=== PATIENT | female | born 1935 | race Caucasian/White ===

== ENCOUNTER → 2016-10-27 | Outpatient (CLI) | payer MEDICARE, BC ==
[~2016-10-27] MED LIST: ASPI-999 PO; CYAN10006 PO; FOLI1TAB6 PO; GABA-486 PO; L.AC1CAP6 PO; LISI10TA2 PO; MULT-158 PO; NITR0.4T SL; TIOT4MIS2 IH
--- OUTSIDE RECORDS SUMMARY | 2016-10-27 15:35 | XMS REPORT ---
Author Author Boni Harrison [facility] Address [address] [place], [place] [id number] Care Team Providers Care Duplicator Punch Set Up Operator Name Role Phone Boni Harrison PCP Unavailable Allergies and Adverse Reactions Name Reaction Notes NO KNOWN DRUG ALLERGIES Plan of Treatment Planned Activity Comments Planned Date Planned Time Plan/Goal COMPLETE CBC W/AUTO DIFF WBC 10/17/2011 12:00 AM COMPREHEN METABOLIC PANEL 10/17/2011 12:00 AM LIPID PANEL 10/17/2011 12:00 AM ASSAY THYROID STIM HORMONE 10/17/2011 12:00 AM COMPLETE CBC W/AUTO DIFF WBC 02/27/2014 12:00 AM COMPREHEN METABOLIC PANEL 02/27/2014 12:00 AM LIPID PANEL 02/27/2014 12:00 AM COMPLETE CBC W/AUTO DIFF WBC 06/12/2014 12:00 AM COMPREHEN METABOLIC PANEL 06/12/2014 12:00 AM Medications Active Name Start Date Estimated Completion Date SIG Comments Centrum Silver Oral Tablet take 1 tablet by oral route once daily metoprolol succinate oral tablet extended release 24 hr 50 mg 09/19/2014 take 1 tablet (50 mg) by oral route once daily for 90 days promethazine-codeine oral syrup 6.25-10 mg/5 mL 02/25/2015 take 5 milliliters by oral route every 6 hours as needed, not to exceed 30 mL in 24 hours prednisone oral tablet 20 mg 03/09/2015 03/16/2015 take 2 tablets (40 mg) by oral route once daily for 7 days Spiriva Respimat inhalation mist 2.5 mcg/actuation 03/13/2015 inhale 2 puffs (5 mcg) by inhalation route once daily at the same time each day Name Start Date Expiration Date SIG Comments Zithromax Z-Efraín Oral Tablet 250 mg 09/01/2009 09/11/2009 take 2 tablets (500 mg) by oral route once daily for 5 days Zithromax Z-Efraín Oral Tablet 250 mg 01/25/2011 01/30/2011 take 2 tablets (500 mg ) by oral route once daily for 1 day then 1 tablet (250 mg) by oral route once daily for 4 days Promethazine VC-Codeine Oral Syrup 5-6.25-10 mg/5 mL 05/05/2011 take 5 milliliters by oral route every 6 hours as needed, not to exceed 30 mL in 24 hours amoxicillin Oral Capsule 500 mg take 1 capsule (500 mg) by oral route every 8 hours x 7 days Medrol (Efraín) Oral tablets,dose pack 4 mg 06/20/2012 take as directed Augmentin Oral tablet 875-125 mg 07/16/2012 08/05/2012 take 1 tablet by oral route every 12 hours for 10 days metoprolol succinate oral tablet extended release 24 hr 50 mg 09/13/201312/07 take 1 tablet (50 mg) by oral route once daily for 90 days Mobic oral tablet 15 mg 10/02/2013 03/31/2014 take 1 tablet (15 mg) by oral route once daily for 30 days lisinopril oral tablet 10 mg 06/12/2014 06/07/2015 take 1 tablet (10 mg) by oral route once daily for 30 days WelChol oral powder in packet 3.75 gram 06/12/2014 06/19/2014 take 1 packet ( 3.75 gram) dissolved in 120 to 240ml of water; stir and drink by oral route once daily with a meal for 7 days azithromycin oral tablet 250 mg 11/17/2014 11/22/2014 take 2 tablets (500 mg) by oral route once daily for 1 day then 1 tablet (250 mg) by oral route once daily for 4 days Levaquin oral tablet 500 mg 03/02/2015 03/09/2015 take 1 tablet (500 mg) by oral route once daily for 7 days Discontinued Name Start Date Discontinued Date SIG Comments Aleve Oral Tablet 220 mg 01/04/2011 take 1 tablet (220 mg) by oral route every 8 hours as needed Zantac Oral Tablet 150 mg 10/17/2011 take 1 tablet (150 mg) by oral route 2 times per day Kapidex Oral Cap, Delayed Rel., Multiphasic 60 mg 09/01/2009 01/03/2011 take 1 capsule (60 mg) by oral route once daily Benicar HCT Oral Tablet 40-25 mg 06/10/2010 12/29/2010 take 1 tablet by oral route once daily Horse chestnut 500 mg 06/17/2013 1 daily Ginkgo Biloba Oral Capsule 50 mg 06/17/2013 Avalide Oral Tablet 300-12.5 mg 01/25/2011 10/17/2011 take 1 tablet by oral route once daily bumetanide Oral Tablet 1 mg 05/05/2011 10/17/2011 take 1 tablet by oral route daily as needed Lortab Oral tablet 5-500 mg 06/20/2012 06/17/2013 take 1 tablet by oral route every 6 hours as needed for pain Amoxicillin Oral Capsule 500 mg 02/19/2013 06/17/2013 take 2 capsules by oral route 3 times a day for 5 days Toprol XL Oral tablet extended release 24 hr 50 mg 02/19/2013 04/09/2013 take 1 tablet by oral route daily for 90 days deleted Levaquin Oral tablet 500 mg 06/17/2013 take 1 tablet (500 mg) by oral route once daily for 7 days Percocet oral tablet 5-325 mg 08/20/2014 03/02/2015 take 1 tablet by oral route every 6 hours as needed Mobic oral tablet 7.5 mg 11/17/2014 03/02/2015 take 1-2 tablets by oral route daily Start with 1. May take 2nd one in 30-45 minutes afterwards if pain persists Allison Kirbyes oral capsule 100 mg 11/17/2014 03/02/2015 take 1 capsule (100 mg) by oral route every 4 hours as needed albuterol sulfate inhalation HFA aerosol inhaler 90 mcg/actuation 11/28/201403/02/2015 inhale 1 - 2 puffs by inhalation route every 4-6 hours as needed Symbicort inhalation HFA aerosol inhaler 80-4.5 mcg/actuation 11/28/20142014 inhale 2 puffs by inhalation route 2 times per day in the morning and evening Problem List Description Status Onset Hypertension Active Osteoarthritis Active GERD Active Hepatitis Active Keratosis, seborrheic Active 09/16/2014 Benign neoplasm of skin of lower limb Active 09/16/2014 Benign neoplasm of skin of upper limb and shoulder Active 09/16/2014 Actinic Keratosis Active 09/16/2014 Benign neoplasm of skin of back Active 09/16/2014 [place] angioma Active 09/16/2014 Vital Signs Date Time BP-Sys(mm[Hg] BP-Dottie(mm[Hg]) HR(bpm) RR(rpm) Temp WT HT HC BMI BSA BMI Percentile O2 Sat(%) 03/13/2015 10:22:00 AM 132 mmHg 70 mmHg 73 bpm 18 rpm 97.4 F 176 lbs 63 in 31.18 kg/m2 1.88 m2 99 % 03/09/2015 2:44:00 PM 130 mmHg 80 mmHg 69 bpm 18 rpm 98.4 F 172 lbs 63 in 30.4681 kg/m 1.8622 m 96 % 03/02/2015 10:40:00 AM 134 mmHg 66 mmHg 65 bpm 18 rpm 99.5 F 170.125 lbs 63 in 30.14 kg/m2 1.85 m2 93 % 11/17/2014 4:02:00 PM 123 mmHg 80 mmHg 85 bpm 16 rpm 97.6 F 190 lbs 63 in 33.6566 kg/m 1.9573 m 98 % 08/14/2014 9:03:00 AM 138 mmHg 84 mmHg 82 bpm 18 rpm 97.8 F 190.375 lbs 63 in 33.72 kg/m2 1.96 m2 96 % 06/12/2014 10:16:00 AM 166 mmHg 78 mmHg 72 bpm 18 rpm 97.4 F 191 lbs 63 in 33.8338 kg/m 1.9624 m 02/27/2014 3:51:00 PM 142 mmHg 82 mmHg 67 bpm 18 rpm 98.7 F 195 lbs 63 in 34.54 kg/m2 1.98 m2 93 % 09/06/2013 4:41:00 PM 170 mmHg 100 mmHg 75 bpm 16 rpm 193 lbs 66 in 31.1507 kg/m 2.0191 m 99 % 06/17/2013 10:06:00 AM 130 mmHg 88 mmHg 68 bpm 18 rpm 97.9 F 189 lbs 66 in 30.51 kg/m2 2.00 m2 02/19/2013 2:46:00 PM 160 mmHg 80 mmHg 64 bpm 18 rpm 97.4 F 190 lbs 66 in 30.6665 kg/m 2.0033 m 02/05/2013 11:40:00 AM 160 mmHg 80 mmHg 72 bpm 16 rpm 97.2 F 189 lbs 66 in 30.51 kg/m2 2.00 m2 07/16/2012 3:06:00 PM 136 mmHg 80 mmHg 56 bpm 18 rpm 97.8 F 177 lbs 66 in 28.5683 kg/m 1.9336 m 06/20/2012 11:07:00 AM 124 mmHg 80 mmHg 78 bpm 18 rpm 98.2 F 178 lbs 66 in 28.73 kg/m2 1.94 m2 12/16/2011 8:52:00 AM 166 mmHg 90 mmHg 72 bpm 20 rpm 97.8 F 178 lbs 66 in 28.7297 kg/m 1.939 m 10/17/2011 2:09:00 PM 154 mmHg 76 mmHg 78 bpm 18 rpm 97 F 174 lbs 66 in 28.08 kg/m2 1.92 m2 05/05/2011 9:45:00 AM 144 mmHg 84 mmHg 100 bpm 18 rpm 97.5 F 177.375 lbs 01/25/2011 1:27:00 PM 140 mmHg 80 mmHg 102 bpm 18 rpm 97.2 F 177.25 lbs 66 in 28.61 kg/m2 1.93 m2 95 % 01/03/2011 11:11:00 AM 132 mmHg 80 mmHg 76 bpm 16 rpm 97.2 F 178.562 lbs 12/29/2010 4:02:00 PM 130 mmHg 90 mmHg 84 bpm 16 rpm 97.4 F 181.25 lbs 66 in 29.25 kg/m2 1.96 m2 97 % 09/01/2009 4:12:00 PM 110 mmHg 68 mmHg 82 bpm 16 rpm 96.8 F 187.375 lbs 66 in 30.2428 kg/m 1.9894 m 98 % Social History Name Description Comments Housing Lives in a house in [place], [place] Lives with spouse [facility] REAL ESTATE Grown Children 5 children --1 Tobacco Never smoker Alcohol Did not serve in lives at home Denies illicit substance abuse Alcohol Use 2-3 vodka a night High school graduate Active but no formal exercise History of Procedures Date Ordered Description Order Status 09/29/2011 12:00 AM URINALYSIS AUTO W/SCOPE Returned 10/17/2011 12:00 AM ECG MONIT/REPRT UP TO 48 HRS Reviewed 07/16/2012 12:00 AM TD VACCINE NO PRSRV 7/> IM Reviewed 07/19/2012 12:00 AM MAMMOGRAM SCREENING Returned 09/01/2009 12:00 AM CHEST X-RAY 2VW FRONTAL&LATL Reviewed 09/01/2009 12:00 AM THER/PROPH/DIAG INJ SC/IM Reviewed 08/14/2014 12:00 AM COMPLETE CBC W/AUTO DIFF WBC Reviewed 08/14/2014 12:00 AM COMPREHEN METABOLIC PANEL Reviewed 08/14/2014 12:00 AM VITAMIN B-12 Reviewed 08/14/2014 12:00 AM ASSAY OF PREALBUMIN Reviewed 08/14/2014 12:00 AM ASSAY OF IRON Reviewed 08/14/2014 12:00 AM IRON BINDING TEST Reviewed 08/14/2014 12:00 AM ASSAY OF CK (CPK) Reviewed 01/25/2011 12:00 AM THER/PROPH/DIAG INJ SC/IM Reviewed 11/26/2014 12:00 AM COMPLETE CBC W/AUTO DIFF WBC Returned 11/26/2014 12:00 AM COMPREHEN METABOLIC PANEL Returned 11/26/2014 12:00 AM CHEST X-RAY 2VW FRONTAL&LATL Returned 11/26/2014 12:00 AM MYCOPLASMA ANTIBODY Returned 03/09/2015 12:00 AM COMPLETE CBC W/AUTO DIFF WBC Reviewed 03/09/2015 12:00 AM COMPREHEN METABOLIC PANEL Reviewed 03/09/2015 12:00 AM CHEST X-RAY 2VW FRONTAL&LATL Reviewed 03/09/2015 12:00 AM ASSAY OF NATRIURETIC PEPTIDE Reviewed Results Summary Data and Description Results 02/15/2002 12:00 AM Mammogram -Women over 40 Normal 05/22/2002 12:00 AM Cholest Cry Stone Ql IR 167.0 %LDLc SerPl-mCnc 83.0 mg/ dLHDLc SerPl-mCnc 69.0 mg/dLTrigl SerPl-mCnc 72.0 mg/dL 02/24/2003 12:00 AM Glucose SerPl-mCnc 113.0 mg/dL 05/09/2005 12:00 AM Dexa Bone Scan Done 09/01/2009 12:31 PM HIV1+2 Ab Ser Ql no risk 12/29/2010 4:05 PM Pap Smear Declined 12/29/2010 4:07 PM Colonoscopy-Women and Men over 50 ordered 12/29/2010 4:07 PM Depression Done HIV1+2 Ab Ser Ql no risk 12/29/2010 4:08 PM Aspirin reccommended Contraindication 09/29/2011 5:52 PM COLOR YELLOW APPEARANCE HAZY SPEC GRAV 1.020 pH 6.5 PROTEIN NEGATIVE GLUCOSE NEGATIVE KETONE NEGATIVE BILIRUBIN NEGATIVE BLOOD MODERATE NITRITE POSITIVE LEUK SCREEN TRACE CASTS/LPF NEGATIVE CRYSTALS NEGATIVE MUCOUS THRDS NEGATIVE BACTERIA 1+ EPITH CELLS FEW SQUAMOUS TRICHOMONAS NEGATIVE YEAST NEGATIVE 08/14/2014 9:58 AM IRON TOTAL 50.0 ug/dLTransferrin 230.0 mg/dLPREALBUMIN 17.0 mg/dLCPK 19 IU/LWBC 5.3 RBC 3.37 HGB 11.0 g/dLHCT 33.50 %MCV 99.0 fLMCH 32.60 pgMCHC 32.80 g/dLRDW CV 15.80 %MPV 9.0 fLPLT 300 %NEUT 63.80 %%LYMP 15.80 %%MONO 18.70 %%EOS 1.50 %%BASO 0.20 %#NEUT 3.35 #LYMP 0.83 #MONO 0.98 #EOS 0.08 #BASO 0.01 GLUCOSE 111.0 mg/dLSODIUM 136.0 mmol/LPOTASSIUM 4.40 mmol/LCHLORIDE 101.0 mmol/LCO2 25.0 mmol/LBUN 20.0 mg/dLCREATININE 0.90 mg/dLSGOT/AST 25.0 IU/ LSGPT/ALT 34.0 IU/LALK PHOS 87.0 IU/LTOTAL PROTEIN 7.10 g/dLALBUMIN 3.90 g/ dLTOTAL BILI 1.40 mg/dLCALCIUM 9.30 mg/dLeGFR 60 VITAMIN B12 >2000 PG/ML 08/27/2014 4:04 PM WBC 5.0 RBC 3.87 HGB 12.30 g/dLHCT 38.50 %MCV 100.0 fLMCH 31.80 pgMCHC 31.90 g/dLRDW CV 14.70 %MPV 10.10 fLPLT 302 %NEUT 48.80 %%LYMP 33.10 %%MONO 15.50 %%EOS 2.40 %%BASO 0.20 %#NEUT 2.43 #LYMP 1.65 #MONO 0.77 # EOS 0.12 #BASO 0.01 GLUCOSE 102.0 mg/dLSODIUM 141.0 mmol/LPOTASSIUM 4.50 mmol/ LCHLORIDE 104.0 mmol/LCO2 23.0 mmol/LBUN 17.0 mg/dLCREATININE 0.90 mg/dLSGOT/ AST 21.0 IU/LSGPT/ALT 18.0 IU/LALK PHOS 138.0 IU/LTOTAL PROTEIN 7.10 g/ dLALBUMIN 4.0 g/dLTOTAL BILI 0.40 mg/dLCALCIUM 9.50 mg/dLeGFR 60 11/26/2014 2:40 PM GLUCOSE 118.0 mg/dLSODIUM 139.0 mmol/LPOTASSIUM 4.60 mmol/ LCHLORIDE 98.0 mmol/LCO2 27.0 mmol/LBUN 17.0 mg/dLCREATININE 0.90 mg/dLSGOT/AST 20.0 IU/LSGPT/ALT 9.0 IU/LALK PHOS 83.0 IU/LTOTAL PROTEIN 7.10 g/dLALBUMIN 4.0 g /dLTOTAL BILI 0.60 mg/dLCALCIUM 9.80 mg/dLeGFR >60 mL/min/1.73 m2WBC 6.1 RBC 4.87 HGB 15.60 g/dLHCT 47.0 %MCV 97.0 fLMCH 32.0 pgMCHC 33.20 g/dLRDW CV 16.50 % MPV 10.40 fLPLT 211 %NEUT 46.30 %%LYMP 35.60 %%MONO 15.20 %%EOS 2.60 %%BASO 0.30 %#NEUT 2.84 #LYMP 2.18 #MONO 0.93 #EOS 0.16 #BASO 0.02 EOS 1.0 % 03/09/2015 4:10 PM WBC 6.4 RBC 4.76 HGB 15.70 g/dLHCT 45.80 %MCV 96.0 fLMCH 33.0 pgMCHC 34.30 g/dLRDW CV 15.0 %MPV 10.40 fLPLT 259 %NEUT 52.50 %%LYMP 28.0 % %MONO 18.20 %%EOS 0.80 %%BASO 0.50 %#NEUT 3.34 #LYMP 1.78 #MONO 1.16 #EOS 0.05 # BASO 0.03 BASO 1.0 %GLUCOSE 115.0 mg/dLSODIUM 138.0 mmol/LPOTASSIUM 4.40 mmol/ LCHLORIDE 101.0 mmol/LCO2 27.0 mmol/LBUN 18.0 mg/dLCREATININE 1.0 mg/dLSGOT/AST 16.0 IU/LSGPT/ALT 11.0 IU/LALK PHOS 79.0 IU/LTOTAL PROTEIN 6.90 g/dLALBUMIN 4.10 g/dLTOTAL BILI 0.70 mg/dLCALCIUM 9.90 mg/dLeGFR 54 BNP 111.0 pg/mL History Of Immunizations Name Date Admin Mfg Name Mfg Code Trade Name Lot# Route Inj Vis Given Vis Pub CVX Td 07/16/2012 sanofi pasteur [facility] DECAVAC [id number] Intramuscular Left Deltoid 07/16/2012 01/26/2010 113 History of Past Illness Name Date of Onset Comments Acute Maxillary Sinusitis Sep 01 2009 4:33PM Gastroesophageal Reflux Sep 01 2009 4:33PM Cough Sep 01 2009 4:33PM Hypertension Osteoarthritis GERD Hepatitis Lymphedema Keratosis, seborrheic 09/16/2014 Benign neoplasm of skin of lower limb 09/16/2014 Benign neoplasm of skin of upper limb and shoulder 09/16/2014 Actinic Keratosis 09/16/2014 Benign neoplasm of skin of back 09/16/2014 [place] angioma 09/16/2014 Edema Dec 29 2010 4:37PM Lymphedema Jan 03 2011 11:17AM Acute Maxillary Sinusitis Jan 25 2011 1:30PM Wheezing Jan 25 2011 1:30PM Hypertension May 05 2011 9:47AM Lymphedema May 05 2011 9:47AM Upper Respiratory Infection May 05 2011 9:47AM Dysuria Sep 29 2011 4:56PM Syncope Oct 17 2011 2:15PM Screening for Ischemic Heart Disease Oct 17 2011 2:15PM Loss of consciousness Oct 17 2011 4:13PM Syncope Dec 16 2011 8:57AM Lesion, Skin Mar 07 2012 10:22AM Osteoarthritis Jun 20 2012 11:09AM Cough Jun 20 2012 11:09AM Cellulitis/Abscess, unspecified Jul 16 2012 3:13PM Screening Mammogram Jul 19 2012 5:18PM Bite By Non-arthropod Animal Jul 16 2012 3:13PM Hypertension Feb 05 2013 11:41AM Hypertension Feb 19 2013 2:51PM Otitis Media, Acute Feb 19 2013 2:51PM Hypertension Jun 17 2013 10:14AM Preoperative Examination Jun 17 2013 10:14AM Hypertension Sep 06 2013 4:44PM Hypertension Feb 27 2014 3:57PM Hypertension Jun 12 2014 10:19AM Abdominal Pain Jun 12 2014 10:19AM Anemia Aug 14 2014 9:09AM Hypertension Aug 14 2014 9:09AM Rhabdomyolysis Aug 14 2014 9:09AM Keratosis, seborrheic Sep 16 2014 1:52PM Benign neoplasm of skin of lower limb Sep 16 2014 1:52PM Benign neoplasm of skin of upper limb and shoulder Sep 16 2014 1:52PM Actinic keratosis Sep 16 2014 1:52PM Benign neoplasm of skin of back Sep 16 2014 1:52PM Quezada angioma Sep 16 2014 1:52PM Left hip pain Nov 17 2014 4:04PM Upper Respiratory Infection Nov 17 2014 4:04PM Cough Nov 26 2014 2:22PM Bronchitis, Acute Mar 02 2015 10:42AM Hyperglycemia Mar 09 2015 2:57PM Anemia, Vitamin B12 Deficiency Mar 09 2015 2:57PM Cough Mar 09 2015 2:57PM Chronic Obstructive Pulmonary Disease Mar 13 2015 10:22AM Payers Insurance Name Company Name Plan Name Plan Number Policy Number Policy Group Number Start Date Medicare Part A Medicare Part A [id number] N/A [employer] [facility] [id number] N/A Medicare Part B Medicare Of [place] [id number] Wednesday, 2002 [employer]et[employer] Aetna [id number] N/A [facility] [id number] Tuesday, 2013 History of Encounters Visit Date Visit Type Provider 03/13/2015 Office visit Boni Harrison MD 03/09/2015 Office visit Boni Harrison MD 03/02/2015 Office visit Boni Harrison MD 11/17/2014 Office visit Josiah Daley APRN 09/16/2014 Office visit Onur Haley MD 08/28/2014 [facility] Ayan Samuels DO 08/27/2014 [facility] Marya Ervin MD 08/14/2014 Office visit Boni Harrison MD 08/06/2014 [facility] Mignon Crooks MD 06/12/2014 Office visit Boni Harrison MD 02/27/2014 Office visit Boni Harrison MD 09/06/2013 Office visit Josiah Daley APRN 07/09/2013 [facility] Marya Ervin MD 06/17/2013 Office visit Boni Harrison MD 02/19/2013 Office visit Boni Harrison MD 02/05/2013 Office visit Boni Harrison MD 07/16/2012 Office visit Boni Harrison MD 06/20/2012 Office visit Boni Harrison MD 06/14/2012 [facility] Sharmaine DO 06/13/2012 [facility] Mignon Crooks MD 06/12/2012 [facility] Mignon Crokos MD 12/16/2011 Procedures Boni Harrison MD 10/17/2011 Office visit Boni Harrison MD 07/11/2011 Office visit Yoandy Anglin MD 05/05/2011 Office visit Boni Harrison MD 01/25/2011 Office visit Dave Chowdary DO 01/03/2011 Office visit Filomena Meier MD 12/29/2010 Office visit Dave Chowdary DO 08/11/2010 [facility] Marya Ervin MD 09/01/2009 Office visit Dave Chowdary DO
--- NOTE | 2016-10-28 13:19 | ECHOCARDIOGRAPHY REPORT ---
PROCEDURE PHYSICIAN: JOSELYN ASHLEY DATE OF PROCEDURE: 10/27/2016 TWO DIMENSIONAL ECHOCARDIOGRAM REPORT PRIMARY PHYSICIAN: OTHER PHYSICIAN: REFERRING PHYSICIAN: Dr. Harrison ORDERING PHYSICIAN: INDICATION FOR THE PROCEDURE: Chest pain, hypertension. MEASUREMENTS DERIVED VALUES LV DIAMETER (LAX) NORMALS NORMALS Diastolic 4. (3.6-5.2) Eject. Fract. 60% (60%+/-6%) Systolic (2.3-3.9) Diastolic Vol. % Shortening (0.22-0.42) Systolic Vol. Aortic Root IVS THICKNESS Diastolic 1.2 (0.6-1.1) LVPW THICKNESS Diastolic 1.2 (0.6-1.1) LA DIAMETER Systolic 3.8 (2.1-3.7) FINDINGS: 1. Technical quality is good. 2. The left ventricle is normal in size with normal contractility. Systolic function appeared to be normal. Estimated ejection fraction 60%. 3. The left atrium is mildly dilated. No clot or thrombus were seen within the left atrium. 4. The right atrium and right ventricle are normal in size. No clot or thrombus were seen within the right side. 5. Mitral valve is mildly calcified with mild mitral regurgitation noted by color Doppler flow. No mitral valve prolapse. No mitral valve stenosis. 6. Aortic valve is trileaflet with normal opening and closing pattern. No significant aortic valve stenosis. Mild aortic regurgitation noted by color Doppler flow. 7. Tricuspid valve is normal in morphology with mild tricuspid regurgitation noted by color Doppler flow. Doppler across tricuspid valve estimated pulmonary artery pressure of 33+ right atrial pressure. 8. Pulmonic valve is functioning normally. 9. No pericardial effusion. CONCLUSION: 1. Normal left ventricular size and systolic function. Estimated ejection fraction 60%. Diastolic dysfunction is suggested by Doppler. 2. Mildly dilated left atrium. 3. Mild mitral and tricuspid regurgitation. 4. Mild aortic regurgitation. 5. Estimated pulmonary artery pressure of 40 mmHg. Job ID: [id number] Dictated Date: 10/28/2016 08:33:12 Recreational Specialist Date: 10/28/2016 13:15:44 / moiz
== END ==
LOC: CARD 15:28
PROVIDERS: ATTEND Internal Medicine Cardiovascular Disease
DX: R07.9 Chest pain, unspecified (principal); I10 Essential (primary) hypertension; R55 Syncope and collapse; E66.9 Obesity, unspecified; J44.9 Chronic obstructive pulmonary disease, unspecified
CPT/HCPCS: 93306

== ENCOUNTER 2016-11-09 06:48 | Day surgery (SDC) | payer MEDICARE ==
[2016-11-09] VITALS (13 sets, daily range): BP systolic 132–165; BP diastolic 60–82
[~2016-11-09] VITALS: Ht 167.6 cm; Wt 79.4 kg
[2016-11-09] MEDS ORDERED: NS IV 1000 ML 1,000 ML ONE (07:05)
[2016-11-09] MEDS ORDERED: HEParin (CATH LAB) 2,000 ML IV ONE ×2 (07:05→09:48)
[2016-11-09] MEDS ORDERED: LIDOCAINE 1% INJ 20 ML (XYLOCAINE) VIAL ONE ×2 (07:05→09:48)
[2016-11-09] MEDS ORDERED: NS IV 1000 ML 1,000 ML IV SCH (07:15)
[2016-11-09 07:53] LABS: MEAN PLATELET VOLUME 9.5 FL (7.4-10.4); RED BLOOD COUNT 4.63 10^6/uL (4.35-5.85); RED CELL DISTRIBUTION WIDTH 15.1 % (10.0-14.5); WHITE BLOOD COUNT 4.3 10^3/uL (4.3-11.0)
[2016-11-09] MEDS ORDERED: methylPREDNISolone 125 MG (Solu-MEDROL) VIAL ONE (07:54)
[2016-11-09 07:59] LABS: BILIRUBIN,URINE NEGATIVE (NEGATIVE); KETONES,URINE NEGATIVE (NEGATIVE); LEUKOCYTE ESTERASE ,URINE 1+ (NEGATIVE); NITRITE,URINE NEGATIVE (NEGATIVE); PH,URINE 6 (5-9); PROTEIN,URINE 1+ (NEGATIVE); UROBILINOGEN,URINE NORMAL (NORMAL)
[2016-11-09 08:01] LABS: INR 0.9 (0.8-1.4); PROTHROMBIN TIME PATIENT 12.2 SEC (12.2-14.7)
[2016-11-09 08:07] LABS: WBC,URINE RARE /HPF
[2016-11-09] MEDS ORDERED: MULT-158 PO (08:08)
[2016-11-09] MEDS ORDERED: LISI10TA2 PO (08:08)
[2016-11-09] MEDS ORDERED: FOLI1TAB6 PO (08:08)
[2016-11-09] MEDS ORDERED: TIOT4MIS2 IH (08:08)
[2016-11-09] MEDS ORDERED: L.AC1CAP6 PO (08:08)
[2016-11-09] MEDS ORDERED: GABA-486 PO (08:08)
[2016-11-09] MEDS ORDERED: CYAN10006 PO (08:08)
[2016-11-09] MEDS ORDERED: NITR0.4T SL (08:10)
[2016-11-09] MEDS ORDERED: ASPI-999 PO (08:10)
--- NOTE | 2016-11-09 08:11 | Diagnostic Imaging Report ---
INDICATION: Precardiac catheterization. FINDINGS: Heart size within normal limits. No vascular congestion. No evidence for edema, pneumonia, effusion or pneumothorax. There is no acute failure pattern. IMPRESSION: No acute appearing abnormality. Dictated by: Dictated on workstation # [id number]
[2016-11-09 08:12] LABS: ALBUMIN 4.2 G/DL (3.2-4.5); BILIRUBIN,TOTAL 0.7 MG/DL (0.1-1.0); CREATININE SERUM 1.09 MG/DL (0.60-1.30); POTASSIUM 4.2 MMOL/L (3.6-5.0)
[2016-11-09] MEDS ORDERED: diphenhydrAMINE 50 MG/ML INJ (BENADRYL) ONE (08:24)
[2016-11-09] MEDS ORDERED: fentaNYL INJECTION 100 MCG/2 ML AMP ONE ×2 (08:24→09:48)
[2016-11-09] MEDS ORDERED: MIDAZOLAM 5 MG/5 ML (VERSED) VIAL ONE ×2 (08:24→09:48)
--- NOTE | 2016-11-09 08:27 | Cardiac Procedure Note-CS/ASA ---
Pre-Procedure Note Pre-Op Procedure Note H&P Reviewed The H&P was reviewed, patient examined and no changes noted. Date H&P Reviewed: Nov 09, 2016 Time H&P Reviewed: : Conscious Sedation Pre-Proced Time Reviewed: ASA Class: 3 Airway Mallampati Classification: (cherokee appropriate class) I. II. III, IV Lungs Heart ASA score ASA 1: a normal healthy patient ASA 2: a patient with a mild systemic disease (mid diabetes, controlled hypertension, obesity x ASA 3: a patient with a severe systemic disease that limits activity (angina , COPD, prior Myocardial infarction) ASA 4: a patient with an incapacitating disease that is a constant threat to life (CHF, renal failure) ASA 5: a moribund patient not expected to survive 24 hrs. (ruptured aneurysm) ASA 6: a declared brain patient whose organs are being harvested. For emergent operations, add the letter E after the classification Grade 3 Sedation Plan: Analgesia, Amnesia, Plan communicated to team members, Discussed options with patient/fam, Discussed risks with patient/fam Note The patient is an appropriate candidate to undergo the planned procedure, sedation, and anesthesia. The patient immediately re-assessed prior to indication. JOSELYN ASHLEY MD Nov 09, 2016 08:27
--- NOTE | 2016-11-09 09:34 | Discharge Inst-Post CATH ---
Discharge Inst-CATH Post Cardiac Cath D/C Inst Follow Up/Plan Appointment with Dr Crockett's office in 2-4 weeks CARDIAC CATH DISCHARGE INSTRUCTIONS *Hold Metformin for 48 hours post heart cath. ACTIVITY * Go Home directly and rest. * Limit activity of the leg (or wrist if it was used) for 7 days including aerobics, swimming, jogging, bicycling, etc. * Restrict stair-climbing for 7 days if possible, if not, climb up with your non -cath leg, then bring together on the same step. * Avoid lifting, pushing, pulling or excessive movement of the affected extremity for 7 days. * Customary sexual activity may be resumed after 2 days-use caution not to use a position that strains or causes pain to the affected extremity. * No driving for 24 hours. * NO SMOKING. * Avoid straining for bowel movements for 7 days. * Gentle walking on level ground is allowed. * Returning to work will depend on the type of procedure and the results. Your doctor will discuss this with you. CALL YOUR DOCTOR FOR ANY OF THE FOLLOWING: *If bleeding from the puncture site occurs- Apply gentle pressure to site with clean cloth and call your doctor or EMS. * If a knot or lump forms under the skin, increases in size, or causes pain. * If bruising appears to be worsening or moving further down your leg instead of disappearing. * Temperature above 101 F. CARE OF YOUR GROIN INCISION; * Bruising or purple discoloration of the skin near the puncture site is common. * You may shower only, no bathtub bathing for 5 days. Be careful to avoid slipping as your leg may feel stiff. * If a closure device was used on your femoral artery, please see the attached guide regarding care of the device and your leg. * REMOVE the dressing from your groin the next day after your procedure in the shower. CARE OF YOUR WRIST INCISION; * Bruising or purple discoloration of the skin near the puncture site is common. * You may shower. * DO NOT submerge wrist. * Remove dressing in 24 hours. JOSELYN CROCKETT MD Nov 09, 2016 09:34
[2016-11-09] MEDS ORDERED: PATIENT MAY USE OWN MEDS, ALL PO SCH (09:45)
--- NOTE | 2016-11-09 11:07 | CARDIAC CATHETERIZATION ---
PROCEDURE PHYSICIAN: JOSELYN ASHLEY DATE OF PROCEDURE: 11/09/2016 REFERRING PHYSICIAN: Dr. Boni Harrison. INDICATION: Coronary artery disease. BRIEF HISTORY: Mrs. Nina is a 81-year-old lady with a history of hypertension, hyperlipidemia, has been having recurrent chest pain resembling angina. Underwent a extensive cardiac work-up in June; it did not include cardiac catheterization. Still having recurrent chest pain and decided to proceed with cardiac catheterization, possible PTCA. Patient had a foot ulcer. PEDRO was unobtainable due to significant pain. After the cardiac catheterization and evaluating her coronaries, I decided to proceed with abdominal aortogram with bilateral runoff. PROCEDURE NOTE: After explaining the procedure to the patient, all pros and cons were explained. All questions were answered. The patient signed a consent, then she was placed on the cardiac catheterization laboratory. The right groin was prepped in a sterile fashion. Local anesthesia applied to right groin. 6-Divehi sheath was placed in the right femoral artery. Combination of right and left Jose catheter were used to access the right and left coronary system. Multiple views were obtained. Pigtail catheter advanced to the left ventricular cavity. Pressure was measured. Left ventriculogram was done. Pullback LV to aorta was done. The left groin was prepped, 6-Divehi sheath was placed. Pigtail catheter advanced to the abdominal aorta. Abdominal aortogram with bilateral runoff was done with automated injection. At the end of the procedure, sheath was removed. Mynx device deployed. Hemostasis achieved. FINDINGS: HEMODYNAMICS: LV pressure 159/15, end-diastolic pressure of 15, aortic pressure 155/62, mean of 48. ANATOMY: 1. Left main coronary artery is bifurcating into left anterior descending and left circumflex artery with no obstructive disease. 2. Left anterior descending artery is moderate in size with mild disease, no obstructive disease. 3. Left circumflex artery is moderate in size with mild disease, no obstructive disease. 4. Right coronary artery is smaller artery with no significant obstructive disease. Mild small vessel disease. 5. Left ventriculogram was not done due to the limited amount of contrast used. 6. Aortic arch angiogram was done in the left anterior oblique position. The aortic arch appeared normal. No dissection, hypertensive changes. The origin of the innominate artery, subclavian artery and carotid appeared normal. ABDOMINAL AORTOGRAM: Abdominal aortogram with bilateral runoff was done using automated injection. Hypertensive changes noted in the abdominal aorta. Mild atherosclerotic plaques. No obstructive disease noted down to the trifurcation. Below the trifurcation it is slower flow with small vessel disease. CONCLUSION: 1. Mild coronary artery disease. No significant obstructive disease. 2. Normal left ventricular end-diastolic pressure. 3. Normal aortic arch with hypertensive changes. 4. Small vessel disease at the ankles arteries with slow flow. Hypertensive changes. Otherwise, there is no significant obstructive disease. DISCUSSION AND RECOMMENDATION: The patient will be treated medically. Job ID: [id number] Dictated Date: 11/09/2016 09:46:35 [employer] Date: 11/09/2016 11:01:51 / moiz BIRCH
[2016-11-09] MEDS ORDERED: NITROGLYCERIN SUBLINGUAL 0.4 MG TAB (NITROSTAT) SL PRN (11:15)
[2016-11-09] MEDS ORDERED: ASPIRIN 81 MG CHEW (CHILDREN'S ASA) PO PRN (11:15)
--- NOTE | 2016-11-09 12:14 | DISCHARGE SUMMARY ---
PROCEDURE PHYSICIAN: JOSELYN ASHLEY DATE OF PROCEDURE: 11/09/2016 REFERRING PHYSICIAN: Dr. Boni Harrison. INDICATION: Coronary artery disease. BRIEF HISTORY: Mrs. Nina is a 81-year-old lady with a history of hypertension, hyperlipidemia, has been having recurrent chest pain resembling angina. Underwent a extensive cardiac work-up in June; it did not include cardiac catheterization. Still having recurrent chest pain and decided to proceed with cardiac catheterization, possible PTCA. Patient had a foot ulcer. PEDRO was unobtainable due to significant pain. After the cardiac catheterization and evaluating her coronaries, I decided to proceed with abdominal aortogram with bilateral runoff. PROCEDURE NOTE: After explaining the procedure to the patient, all pros and cons were explained. All questions were answered. The patient signed a consent, then she was placed on the cardiac catheterization laboratory. The right groin was prepped in a sterile fashion. Local anesthesia applied to right groin. 6-Uzbek sheath was placed in the right femoral artery. Combination of right and left Jose catheter were used to access the right and left coronary system. Multiple views were obtained. Pigtail catheter advanced to the left ventricular cavity. Pressure was measured. Left ventriculogram was done. Pullback LV to aorta was done. The left groin was prepped, 6-Uzbek sheath was placed. Pigtail catheter advanced to the abdominal aorta. Abdominal aortogram with bilateral runoff was done with automated injection. At the end of the procedure, sheath was removed. Mynx device deployed. Hemostasis achieved. FINDINGS: HEMODYNAMICS: LV pressure 159/15, end-diastolic pressure of 15, aortic pressure 155/62, mean of 48. ANATOMY: 1. Left main coronary artery is bifurcating into left anterior descending and left circumflex artery with no obstructive disease. 2. Left anterior descending artery is moderate in size with mild disease, no obstructive disease. 3. Left circumflex artery is moderate in size with mild disease, no obstructive disease. 4. Right coronary artery is smaller artery with no significant obstructive disease. Mild small vessel disease. 5. Left ventriculogram was not done due to the limited amount of contrast used. 6. Aortic arch angiogram was done in the left anterior oblique position. The aortic arch appeared normal. No dissection, hypertensive changes. The origin of the innominate artery, subclavian artery and carotid appeared normal. ABDOMINAL AORTOGRAM: Abdominal aortogram with bilateral runoff was done using automated injection. Hypertensive changes noted in the abdominal aorta. Mild atherosclerotic plaques. No obstructive disease noted down to the trifurcation. Below the trifurcation it is slower flow with small vessel disease. CONCLUSION: 1. Mild coronary artery disease. No significant obstructive disease. 2. Normal left ventricular end-diastolic pressure. 3. Normal aortic arch with hypertensive changes. 4. Small vessel disease at the ankles arteries with slow flow. Hypertensive changes. Otherwise, there is no significant obstructive disease. DISCUSSION AND RECOMMENDATION: The patient will be treated medically. FINAL DIAGNOSIS: 1. Coronary artery disease. 2. Mild peripheral arterial disease. 3. Hypertension. 4. Hyperlipidemia. Job ID: [id number] Dictated Date: 11/09/2016 10:17:10 Garnett Feeder Date: 11/09/2016 11:42:40/moiz BIRCH
[2016-11-09] MEDS: NS IV 1000 ML 1,000 ML IV SCH ×2 (17:38→19:32)
[2016-11-09] MEDS ORDERED: GABAPENTIN 100 MG (NEURONTIN) CAP PO SCH (21:00)
[2016-11-10] VITALS: BP 149/67
[2016-11-10 04:00] VITALS: BP 150/68
[2016-11-10] MEDS: NS IV 1000 ML 1,000 ML IV SCH (05:32)
[2016-11-10] MEDS ORDERED: MULTIVIT W/MINERALS TAB (THERAGRAN M) PO SCH (07:00)
--- NOTE | 2016-11-10 07:28 | Cardiology Progress Note ---
Subjective Subjective/Events-last exam patient is laying down in bed, no new complaint, denied any chest pain, groin is bruised Objective-Cardiology Exam Last Set of Vital Signs Vital Signs 11/09/16 11/10/16 13:30 04:00 Temp 97.2 Pulse 62 Resp 18 B/P 150/68 Pulse Ox 97 O2 Delivery Room Air O2 Flow Rate 1.00 Capillary Refill : Less Than 3 Seconds I&O Intake and Output 11/10/16 00:00 Intake Total 1000 ml Balance 1000 ml IV Total 1000 ml General: Alert, Oriented X3, Cooperative HEENT: Atraumatic, PERRLA Neck: Supple, No JVD, No Thyromegaly Lungs: Clear to Auscultation, Normal Air Movement Heart: Regular Rate, Normal S1, Normal S2, No Murmurs Abdomen: Normal Bowel Sounds, Soft, No Tenderness, No Hepatosplenomegaly, No Masses Extremities: No Clubbing, No Cyanosis, No Edema, Normal Pulses, No Tenderness/ Swelling Skin: No Rashes, No Breakdown, No Significant Lesion Neuro: Normal Gait, Normal Speech, Strength at 5/5 X4 Ext, Normal Tone, Sensation Intact Psych/Mental Status: Mental Status NL, Mood NL Results Lab Laboratory Tests 11/09/16 07:42 A/P-Cardiology Admission Diagnosis coronary artery disease Peripheral arterial disease Hypertension Hyperlipidemia Assessment/Plan coronary artery disease, nonobstructive disease Peripheral arterial disease Hypertension Hyperlipidemia JOSELYN ASHLEY MD Nov 10, 2016 07:28
[2016-11-10] MEDS ORDERED: UMECLIDINIUM BROMIDE (INCRUSE ELLIPTA) 7'S IH SCH (08:00)
[2016-11-10] MEDS ORDERED: TIOTROPIUM BROMIDE (SPIRIVA) 5'S INHALER IH SCH ×4 (08:00→09:45)
[2016-11-10] MEDS ORDERED: lisINopril 10 MG (PRINIVIL) TAB PO SCH (09:00)
[2016-11-10] MEDS ORDERED: NON-FORMULARY MEDICATION 1 EA EA (L.acidoph & Paracasei,B.lactis (Probiotic) 1 CAP) PO SCH (09:00)
[2016-11-10] MEDS ORDERED: MULTIVITAMINS WITH IRON PO SCH (09:00)
[2016-11-10] MEDS ORDERED: NON-FORMULARY MEDICATION 1 EA EA (Tiotropium Bromide (Spiriva Respimat) 2 PUFF) IH SCH (09:00)
[2016-11-10] MEDS ORDERED: CYANOCOBALAMIN 500 MCG TAB (VITAMIN B-12) PO SCH (09:00)
[2016-11-10] MEDS ORDERED: LACTOBACILLUS Acidoph/Bulgar (LACTINEX/FLORANEX) TAB PO SCH (09:00)
[2016-11-10] MEDS ORDERED: NON-FORMULARY MEDICATION 1 EA EA (Cyanocobalamin (Vitamin B-12) (Vitamin B-12) 1,000 MCG) PO SCH (09:00)
[2016-11-10 09:20] VITALS: BP 149/64
== END 2016-11-10 09:29 | disposition home or self-care (01) ==
LOC: CATH 06:48 → SURG 10:48 → ICU 15:30 → UNDOADMOB 15:30 → ICU 15:30 → CATH 19:26 → ICU 19:26 → CATH 11-10 09:29 → UNDODISOB 11-10 09:29
PROVIDERS: ATTEND Internal Medicine Cardiovascular Disease
DX: R07.89 Other chest pain (principal); I25.10 Atherosclerotic heart disease of native coronary artery without angina pectoris; I70.203 Unspecified atherosclerosis of native arteries of extremities, bilateral legs; I10 Essential (primary) hypertension; E78.5 Hyperlipidemia, unspecified; J44.9 Chronic obstructive pulmonary disease, unspecified; G62.9 Polyneuropathy, unspecified; L97.909 Non-pressure chronic ulcer of unspecified part of unspecified lower leg with unspecified severity; Z79.899 Other long term (current) drug therapy
CPT/HCPCS: 36221; 36415; 71010; 75630; 80053; 80061; 81000; 85027; 85610; 85730; 87081; 93458

== ENCOUNTER → 2017-09-11 | Outpatient (CLI) | payer MEDICARE ==
[~2017-09-11] MED LIST changes: +RT-ALBUTEROL SULF 2.5 MG/3 ML PRE-MIX VIAL INH ONE
== END ==
LOC: RT 13:50
PROVIDERS: ATTEND Nurse Practitioner Family
DX: R94.2 Abnormal results of pulmonary function studies (principal); J44.9 Chronic obstructive pulmonary disease, unspecified; R06.00 Dyspnea, unspecified; M79.89 Other specified soft tissue disorders; J30.9 Allergic rhinitis, unspecified
CPT/HCPCS: 94060; 94726; 94729

== ENCOUNTER → 2017-09-11 | Outpatient (CLI) | payer MEDICARE ==
[~2017-09-11] MED LIST changes: +CATHETER FLUSH 10 ML SYR IV PRN; +IOHEXOL 350 MG/ML 150 ML (OMNIPAQUE 350) VIAL IV ONE; +NS 100 ML (IVPB) BAG IV ONE; -RT-ALBUTEROL SULF 2.5 MG/3 ML PRE-MIX VIAL INH ONE
[2017-09-11 14:15] LABS: BASOPHILS % (AUTO) 1 % (0-10); EOSINOPHILS # (AUTO) 0.1 10^3/uL (0.0-0.3); EOSINOPHILS % (AUTO) 2 % (0-10); LYMPHOCYTES # (AUTO) 1.2 X 10^3 (1.0-4.0); LYMPHOCYTES % (AUTO) 20 % (12-44); MEAN CORPUSCULAR HEMOGLOBIN 32 PG (25-34); MEAN CORPUSCULAR HGB CONC 34 G/DL (32-36); MEAN CORPUSCULAR VOLUME 93 FL (80-99); MEAN PLATELET VOLUME 9.9 FL (7.4-10.4); MONOCYTES # (AUTO) 0.9 X 10^3 (0.0-1.0); MONOCYTES % (AUTO) 16 % (0-12); NEUTROPHILS # (AUTO) 3.7 X 10^3 (1.8-7.8); NEUTROPHILS % (AUTO) 63 % (42-75); PLATELET COUNT 236 10^3/uL (130-400); RED BLOOD COUNT 4.05 10^6/uL (4.35-5.85); RED CELL DISTRIBUTION WIDTH 14.4 % (10.0-14.5); WHITE BLOOD COUNT 5.9 10^3/uL (4.3-11.0)
[2017-09-11 14:30] LABS: BAND NEUTROPHILS 0 %; BASOPHILS % (MANUAL) 0 %; EOSINOPHILS % (MANUAL) 1 %; LYMPHOCYTES % (MANUAL) 20 %; NEUTROPHILS % (MANUAL) 61 %
[2017-09-11 14:35] LABS: ALBUMIN 4.2 GM/DL (3.2-4.5); BILIRUBIN,TOTAL 0.8 MG/DL (0.1-1.0); CALCIUM 9.5 MG/DL (8.5-10.1); CREATININE SERUM 1.05 MG/DL (0.60-1.30); POTASSIUM 4.2 MMOL/L (3.6-5.0); TOTAL PROTEIN 7.8 GM/DL (6.4-8.2)
== END ==
LOC: RAD 13:45
PROVIDERS: ATTEND Nurse Practitioner Family
DX: R94.2 Abnormal results of pulmonary function studies (principal)
CPT/HCPCS: 36415; 80053; 83880; 85007; 85027

== ENCOUNTER → 2017-09-27 | Outpatient (CLI) | payer MEDICARE ==
--- NOTE | 2017-09-27 14:03 | Diagnostic Imaging Report ---
PROCEDURE: CT angiography of the chest with contrast. TECHNIQUE: Multiple contiguous axial images were obtained through the chest after uneventful bolus administration of intravenous contrast. Reconstructed CTA MIP acquisitions were also performed. INDICATION: Cough, shortness of breath, and COPD. FINDINGS: There are no filling defects seen within the pulmonary arteries to suggest pulmonary embolism. The thoracic aorta is normal in caliber and without evidence of dissection. There is minimal scarring or atelectasis in the lung bases. There is no pleural or pericardial fluid. There is no pneumothorax. There is cardiomegaly and coronary artery calcifications. There is no pericardial fluid. There are degenerative changes in the spine. The visualized intra-abdominal structures are unremarkable. IMPRESSION: 1. No evidence of pulmonary embolism or aortic dissection. 2. Cardiomegaly and coronary artery calcifications. 3. Minimal scarring in lung bases. 4. Moderate thoracic spondylosis. Dictated by: Dictated on workstation # [id number]
== END ==
LOC: RAD 12:26
PROVIDERS: ATTEND Nurse Practitioner Family
DX: I25.10 Atherosclerotic heart disease of native coronary artery without angina pectoris (principal); J44.9 Chronic obstructive pulmonary disease, unspecified; I51.7 Cardiomegaly; M47.894 Other spondylosis, thoracic region
CPT/HCPCS: 71275

== ENCOUNTER → 2018-01-01 | Outpatient (CLI) | payer MEDICARE ==
[~2018-01-01] VITALS: Ht 160 cm; Wt 81.6 kg
[~2018-01-01] MED LIST changes: -CATHETER FLUSH 10 ML SYR IV PRN; -IOHEXOL 350 MG/ML 150 ML (OMNIPAQUE 350) VIAL IV ONE; -NS 100 ML (IVPB) BAG IV ONE; +REGADENOSON 0.4 MG/5 ML SYR (LEXISCAN) IV ONE
[2018-01-01] MEDS: CATHETER FLUSH 10 ML SYR IV PRN ×2 (08:36→09:57)
[2018-01-01 09:53] VITALS: BP 126/61
--- NOTE | 2018-01-01 13:05 | STRESS TEST ---
DATE OF SERVICE: 01/01/2018 LEXISCAN MYOVIEW STRESS TEST REPORT REFERRING PHYSICIAN: Dr. Harrison. Baseline heart rate is 78. Baseline blood pressure 126/61. Baseline EKG is sinus rhythm with no ischemic changes. In summary, the patient was injected with 10.24 mCi of technetium-99 Myoview and the resting images were obtained. Then, the patient received 0.4 mg of Lexiscan followed by 29.7 mCi of technetium-99 Myoview. Throughout the test, there were no EKG changes. The resting and stress images were reviewed and compared in the short axis, horizontal long axis, and vertical long axis views. Review of the images showed good radiotracer uptake, no significant ischemia or infarction were seen, mild decrease uptake was noted involving the mid to apical anterolateral wall, probably due to breast attenuation. SSS is 4, SDS 4, TID value 0.99. On the gated images, the left ventricle appeared to be in normal size with normal contractility. Calculated ejection fraction 67%. CONCLUSION: 1. The patient tolerated Lexiscan well. 2. Breast attenuation with typical female pattern. No significant ischemia or infarction on SPECT images. 3. Normal left ventricular size with normal contractility. Calculated ejection fraction 67%. Job ID: [id number] DocumentID: [id number] Dictated Date: 01/01/2018 11:24:53 Drawer Maker Date: 01/01/2018 13:05:18 Dictated By: JOSELYN ASHLEY MD
== END ==
LOC: CARD 08:22
PROVIDERS: ATTEND Internal Medicine Cardiovascular Disease
DX: I25.10 Atherosclerotic heart disease of native coronary artery without angina pectoris (principal); R07.9 Chest pain, unspecified; I10 Essential (primary) hypertension; R06.00 Dyspnea, unspecified; J44.9 Chronic obstructive pulmonary disease, unspecified; E66.9 Obesity, unspecified; Z68.31 Body mass index [BMI] 31.0-31.9, adult
CPT/HCPCS: 78452; 93017

== ENCOUNTER → 2019-10-07 | Outpatient (CLI) | payer MEDICARE ==
[~2019-10-07] VITALS: Ht 160 cm; Wt 84.0 kg
[~2019-10-07] MED LIST changes: +CATHETER FLUSH 10 ML SYR IV PRN; +CYAN-41 PO; -CYAN10006 PO
[2019-10-07 09:38] VITALS: BP 144/73
--- NOTE | 2019-10-07 17:01 | STRESS TEST ---
DATE OF SERVICE: 10/07/2019 LEXISCAN MYOVIEW STRESS TEST REFERRING PHYSICIAN: Boni Harrison MD Baseline heart rate is 79, baseline blood pressure 144/73. Baseline EKG is sinus rhythm with no ischemic changes. In summary, the patient was injected with 10.29 mCi of technetium-99 Myoview and the resting images were obtained. Then, the patient received 0.4 mg of Lexiscan followed by 32.1 mCi of technetium-99 Myoview. Throughout the test, there were no EKG changes. The resting and stress images were reviewed and compared in the short axis, horizontal long axis, and vertical long axis views. Review of the images showed good radiotracer uptake with no significant ischemia or infarction. SSS is 1, SDS 1, TID value 0.97. On the gated images, the left ventricle appeared to be normal size with normal contractility. Calculated ejection fraction 70%. CONCLUSION: 1. The patient tolerated Lexiscan well. 2. No significant ischemia or infarction on SPECT images. 3. Normal left ventricular size with normal contractility. Calculated ejection fraction 70%. Job ID: [id number] DocumentID: [id number] Dictated Date: 10/07/2019 12:35:20 Branch Specialist Date: 10/07/2019 17:00:53 Dictated By: JOSELYN ASHLEY MD
== END ==
LOC: CARD 07:31
PROVIDERS: ATTEND Physician Assistant
DX: I25.10 Atherosclerotic heart disease of native coronary artery without angina pectoris (principal); K21.9 Gastro-esophageal reflux disease without esophagitis; G47.33 Obstructive sleep apnea (adult) (pediatric)
CPT/HCPCS: 78452; 93017; 93306

== ENCOUNTER → 2022-12-15 | Outpatient (CLI) | payer MEDICARE ==
[~2022-12-15] MED LIST changes: -CATHETER FLUSH 10 ML SYR IV PRN; -LISI10TA2 PO; +LISI10TA25 PO; -REGADENOSON 0.4 MG/5 ML SYR (LEXISCAN) IV ONE
== END ==
LOC: CARD 14:00
PROVIDERS: ATTEND Physician Assistant
DX: I35.1 Nonrheumatic aortic (valve) insufficiency (principal); I34.81 Nonrheumatic mitral (valve) annulus calcification; I10 Essential (primary) hypertension
CPT/HCPCS: 93306